=== PATIENT | female | born 1990 | race Two or more races ===

== ENCOUNTER 2024-06-27 19:15 | Inpatient (IN) | payer OTHER, BC ==
[~2024-06-27] VITALS: Ht 157.5 cm; Wt 60.2 kg
--- NOTE | 2024-06-27 19:44 | ED.PDOC ---
History of Present Illness HPI Comments 33-year-old female with PMHx DM2 presents with a chief complaint of left cheek swelling. Patient states that she developed a lump to her left cheek that has swollen and states that she is now experiencing pain near her eye. Patient was given an antibiotic at urgent care but states that she has yet to start it. Patient is able to see clearly in both eyes. Chief Complaint: Abscess Time Seen by MD: 19:39 Reviewed Notes: Medications, Allergies Allergies: Coded Allergies: NO KNOWN ALLERGIES (Unverified , 06/27/24) Information Source: Patient Mode of Arrival: Ambulatory Severity: Moderate Timing: Hours Duration: Since onset Prehospital treatment: None Past Medical History PAST MEDICAL HISTORY: DM Surgical History: Denies all surgeries LINEN FOLDER History: Denies all LINEN FOLDER Hx Family History Family History: Reviewed,noncontributory to illness Social History Smoker: Non-Smoker Alcohol: Denies ETOH Use Drugs: Denies Drug Use Lives In: Home Constitutional: denies: chills, diaphoresis, fatigue, fever, malaise, sweats, weakness, others EENTM: denies: blurred vision, double vision, ear bleeding, ear discharge, ear drainage, ear pain, ear ringing, eye pain, eye redness, hearing loss, mouth pain, mouth swelling, nasal discharge, nose bleeding, nose congestion, nose pain, photophobia, tearing, throat pain, throat swelling, voice changes, others Respiratory: denies: cough, hemoptysis, orthopnea, SOB at rest, shortness of breath, SOB with excertion, stridor, wheezing, others Cardiovascular: denies: chest pain, dizzy spells, diaphoresis, Dyspnea on exertion, edema, irregular heart beat, left arm pain, lightheadedness, palpitations, PND, syncope, others Gastrointestinal: denies: abdomen distended, abdominal pain, blood streaked bowels, constipated, diarrhea, dysphagia, difficulty swallowing, hematemesis, me dereje, nausea, poor appetite, poor fluid intake, rectal bleeding, rectal pain, vomiting, others Genitourinary: denies: abnormal vagina bleeding, burning, dyspareunia, dysuria, flank pain, frequency, hematuria, incontinence, pain, , vagina discharge, urgency, others Musculoskeletal: denies: back pain, gout, joint pain, joint swelling, muscle pain, muscle stiffness, neck pain, others Integumetry: reports: lumps (LEFT CHEEK); denies: bruises, change in color, change in hair/nails, dryness, laceration, lesions, rash, wounds, others Allergic/Immunocompromised: denies: Difficulty Healing, Frequent Infections, Hives, Itching, others Hematologic/Lymphatic: denies: anemia, blood clots, easy bleeding, easy bruising, swollen glands, others Endocrine: denies: excessive hunger, excessive sweating, excessive thirst, excessive urination, flushing, intolerance to cold, intolerance to heat, unexplained weight gain, unexplained weight loss, others Psychiatric: denies: anxiety, bipolar disorder, depression, hopeless, panic disorder, schizophrenia, sleepless, suicidal, others All Other Systems: Reviewed and Negative Physical Exam General Appearance: No Apparent Distress, Normal HEENT: Normal ENT Inspection, Pharynx Normal, TMs Normal Neck: Full Range of Motion, Non-Tender, Normal, Normal Inspection Respiratory: Chest Non-Tender, Lungs Clear, No Accessory Muscle Use, No Respiratory Distress, Normal Breath Sounds Cardiovascular: No Edema, No JVD, No Murmur, No Gallop, Normal Peripheral Pulses, Regular Rate/Rhythm Breast Exam: Deferred Gastrointestinal: No Organomegaly, Non Tender, No Pulsatile Mass, Normal Bowel Sounds, Soft Genitalia: Deferred Pelvic: Deferred Rectal: Deferred Extremities: No calf tenderness, Normal capillary refill, Normal inspection, Normal range of motion, Non-tender, No pedal edema Musculoskeletal : Apperance: Normal Neurologic: Alert, 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 Was a procedure done?: No Differential Dx Considerations may include: Cellulitis, abscess, viral syndrome X-Ray, Labs, Meds, VS Vital Signs Date Time Temp Pulse Resp B/P (MAP) Pulse Ox O2 Delivery O2 Flow Rate FiO2 06/27/24 23:36 84 20 96 Room Air* 0 21 06/27/24 22:10 98.7 99 20 147/92 (110) 99 98.7 06/27/24 19:31 96.8 103 18 137/84 (101) 97 96.8 Lab Test 06/27/24 22:41 06/27/24 19:52 Range/Units POC Glucose 417 *H 70-106 mg/dl White Blood Count 8.7 4.4-10.8 10^3/uL Red Blood Count 5.09 4.0-5.20 10^6/uL Hemoglobin 15.4 12.2-16.2 g/dL Hematocrit 44.1 36.0-46.0 % Mean Corpuscular Volume 86.7 80.0-100.0 fL Mean Corpuscular Hemoglobin 30.2 28.0-32.0 pg Mean Corpuscular Hemoglobin Concent 34.8 32.0-36.0 g/dL Red Cell Distribution Width 13.1 11.8-14.3 % Platelet Count 274 140-450 10^3/uL Mean Platelet Volume 8.2 6.9-10.8 fL Neutrophils (%) (Auto) 66.1 37.0-80.0 % Lymphocytes (%) (Auto) 24.1 10.0-50.0 % Monocytes (%) (Auto) 8.1 0.0-12.0 % Eosinophils (%) (Auto) 1.0 0.0-7.0 % Basophils (%) (Auto) 0.7 0.0-2.0 % Neutrophils # (Auto) 5.8 1.6-8.6 10 ^3/uL Lymphocytes # (Auto) 2.1 0.4-5.4 10 ^3/uL Monocytes # (Auto) 0.7 0-1.3 10 ^3/uL Eosinophils # (Auto) 0.1 0-0.8 10 ^3/uL Basophils # (Auto) 0.1 0-0.2 10 ^3/uL Nucleated Red Blood Cells 0.1 % Sodium Level 132 L 136-145 mmol/L Potassium Level 3.5 3.5-5.1 mmol/L Chloride Level 99 98-107 mmol/L Carbon Dioxide Level 23 20-31 mmol/L Anion Gap 10 5-15 Blood Urea Nitrogen 13 9-23 mg/dL Creatinine 0.75 0.550-1.02 mg/dL Glomerular Filtration Rate Calc 108 >90 mL/min BUN/Creatinine Ratio 17.3 10.0-20.0 Serum Glucose 479 *H 74-106 mg/dL Lactic Acid Level 0.9 0.4-2.0 mmol/L Calcium Level 9.3 8.7-10.4 mg/dL Current Medications Medications (Trade) Dose Ordered Sig/Lev Route Start Time Stop Time Status Last Admin Sodium Chloride 1,000 ml @ 1,000 mls/hr Q1H ONCE IV 06/27/24 19:45 06/27/24 20:44 DC 06/28/24 00:09 Cefepime HCl 50 ml @ 12.5 mls/hr ONCE ONCE IV 06/27/24 19:45 06/27/24 23:44 DC 06/27/24 22:49 Vancomycin HCl 200 ml @ 200 mls/hr ONCE ONCE IV 06/27/24 19:45 06/27/24 20:44 DC 06/27/24 23:29 Sodium Chloride 1,000 ml @ 1,000 mls/hr Q1H ONCE IV 06/27/24 21:15 06/27/24 22:14 DC 06/27/24 22:49 Insulin Human Regular (InsuLIN R) 5 units ONCE ONCE IV 06/27/24 21:15 06/27/24 21:26 DC 06/27/24 22:45 Ketorolac Tromethamine (Toradol Injection) 15 mg ONCE ONCE IV 06/27/24 22:45 06/27/24 22:50 DC 06/27/24 22:53 Acetaminophen (Tylenol Tablet) 650 mg ONCE ONCE PO 06/27/24 22:45 06/27/24 22:50 DC 06/27/24 22:53 Time of 1ST Reevaluation: 20:09 Reevaluation 1ST: Unchanged Patient Education/Counseling: Diagnosis, Treatment Family Education/Counseling: No Family Present Departure 1 Departure Time of Disposition: 05:17 (Patient with cellulitis for an abscess over the left cheek. Patient also with a uncontrolled diabetes. We will admit patient for further workup) Impression: Primary Impression: Cellulitis of face Additional Impressions: Uncontrolled diabetes mellitus Qualified Codes: E11.65 - Type 2 diabetes mellitus with hyperglycemia Abscess Disposition: 09 ADMITTED INPATIENT Admit to: Med Surg Condition: Serious Critical Care Note Critical Care Time?: No Stability Stability form required: No Heart Score Heart Score: Heart Score Response (Comments) Value History N/A 0 EKG N/A 0 Age N/A 0 Risk Factors N/A 0 Troponin N/A 0 Total 0 I personally scribed for MISTY BURLESON MD ([email or web address]) on 06/27/24 at 19:44. Electronically submitted by Wild Haq ([email or web address]). MISTY BURLESON MD Jun 27, 2024 19:44
[2024-06-27 20:14] LABS: Basophils # (auto) 0.1 10 ^3/uL (0-0.2); Basophils % (auto) 0.7 % (0.0-2.0); Eosinophils # (auto) 0.1 10 ^3/uL (0-0.8); Hematocrit 44.1 % (36.0-46.0); Hemoglobin 15.4 g/dL (12.2-16.2); Lymphocytes # (auto) 2.1 10 ^3/uL (0.4-5.4); Lymphocytes % (auto) 24.1 % (10.0-50.0); Mean Corpuscular Hemoglobin 30.2 pg (28.0-32.0); Mean Corpuscular Hgb Conc. 34.8 g/dL (32.0-36.0); Mean Corpuscular Volume 86.7 fL (80.0-100.0); Monocytes # (auto) 0.7 10 ^3/uL (0-1.3); Monocytes % (auto) 8.1 % (0.0-12.0); Neutrophils # (auto) 5.8 10 ^3/uL (1.6-8.6); Neutrophils % (auto) 66.1 % (37.0-80.0); Nucleated Red Blood Cells % 0.1 %; Platelet Count (auto) 274 10^3/uL (140-450); Red Blood Cells 5.09 10^6/uL (4.0-5.20); Red Cell Distribution Width 13.1 % (11.8-14.3); White Blood Cell 8.7 10^3/uL (4.4-10.8)
[2024-06-27 20:17] LABS: Chloride 99 mmol/L (98-107); Potassium 3.5 mmol/L (3.5-5.1)
[2024-06-27 20:18] LABS: Anion Gap 10 (5-15); Carbon Dioxide 23 mmol/L (20-31)
[2024-06-27 20:19] LABS: Calcium 9.3 mg/dL (8.7-10.4)
[2024-06-27 20:23] LABS: BUN/Creatinine Ratio 17.3 (10.0-20.0); Blood Urea Nitrogen 13 mg/dL (9-23)
[2024-06-27 20:26] LABS: Glucose 479 mg/dL (74-106); Sodium 132 mmol/L (136-145)
[2024-06-27] MEDS: InsuLIN REG 1unit/0.01ml Soln (100units/ml) IV ONE (22:45)
[2024-06-27] MEDS: SODIUM CHLORIDE 0.9% 1,000 ML IV ONE (22:49)
[2024-06-27] MEDS: CEFEPIME 2GM/50ML NS 50 ML IV ONE (22:49)
[2024-06-27] MEDS: KETOROLAC TROMETH 30 MG/ML 1ML VIAL IV ONE (22:53)
[2024-06-27] MEDS: ACETAMINOPHEN 325 MG TAB PO ONE (22:53)
[2024-06-27] MEDS: VANCOMYCIN 1GM/200ML PM 200 ML IV ONE (23:29)
[2024-06-27 23:36] VITALS: PULSE 84; RESP 20; O2SAT 96
[2024-06-28] MEDS ORDERED: TEMAZEPAM 15 MG CAP PO PRN
[2024-06-28] MEDS ORDERED: ACETAMINOPHEN 325 MG TAB PO PRN
[2024-06-28] MEDS ORDERED: ONDANSETRON HCL 4 MG/2 ML VIAL IV PRN
[2024-06-28] MEDS ORDERED: VANCOMYCIN PER PHARMACY 0 MG IV SCH
[2024-06-28] MEDS ORDERED: DEXTROSE (50%) 50ML SYRG IV PRN
[2024-06-28] MEDS: SODIUM CHLORIDE 0.9% 1,000 ML IV ONE (00:09)
[2024-06-28] MEDS: InsuLIN REG 1unit/0.01ml Soln (100units/ml) SC SCH (00:16)
[2024-06-28] MEDS: ACCU-CHEK COMFORT CURVE STRIP VI SCH (00:19)
[2024-06-28 00:36] LABS: Urine Bacteria None Seen /hpf (None Seen)
[2024-06-28 00:47] LABS: Urine Blood TRACE /uL (Negative); Urine Clarity Clear (Clear); Urine Color Light-Yellow (Yellow); Urine Protein, UAD Negative (Negative); Urine Specific Gravity 1.041 (1.001-1.035); Urine Squamous Epithelial Cell FEW /hpf (<5); Urine Urobilinogen Normal (Negative); Urine WBC 6 /HPF (0-5); Urine pH 5.5 (5.0-9.0)
[2024-06-28 02:11] VITALS: BP 138/72; PULSE 86; RESP 18; TEMP 98.2; O2SAT 96
--- NOTE | 2024-06-28 03:10 | DVHHP2 ---
History of Present Illness Reason for Visit: Facial swelling History of Present Illness 33-year-old female presents for evaluation of left cheek swelling. Patient reports developing a small lump two days ago on her left cheek. She states that today in became progressively more swollen and tender. Denies trauma to the area or or insect bite. Reports intermittent chills. Past Medical History Diabetes mellitus Past Surgical History Denies Family History Noncontributory Smoke: No ALCOHOL: none Drugs: None Lives: with Family Review of Systems Review of Systems Review of systems are currently negative otherwise addressed in HPI. Allergies: Coded Allergies: NO KNOWN ALLERGIES (Unverified , 06/27/24) Medications Current Medications Medications Dose Ordered Sig/Lev Route Start Time Stop Time Status Last Admin Dose Admin Ceftriaxone Sodium 50 ml @ 100 mls/hr DAILY@09 IV 06/28/24 09:00 Vancomycin HCl 0 ml @ 0 mls/hr UD IV 06/28/24 00:00 UNV Diagnostic Test (Pha) 1 strip IQ4HR 06/28/24 00:00 06/28/24 00:19 1 STRIP Insulin Human Regular IQ4HR SC 06/28/24 00:00 06/28/24 00:16 8 UNITS Dextrose 50 ml UD PRN IV 06/28/24 00:00 Acetaminophen/ Hydrocodone Bitart 1 tab Q4HP PRN PO 06/28/24 00:00 Temazepam 15 mg QHSP PRN PO 06/28/24 00:00 Ondansetron HCl 4 mg Q4HP PRN IV 06/28/24 00:00 Acetaminophen 650 mg Q6HP PRN PO 06/28/24 00:00 Exam Vital Signs Vital Signs Date Time Temp Pulse Resp B/P (MAP) Pulse Ox O2 Delivery O2 Flow Rate FiO2 06/27/24 23:36 84 20 96 Room Air* 0 21 06/27/24 22:10 98.7 147/92 (110) 98.7 Exam Gen: 33-year-old female in mild distress Skin: Warm, dry, normal color and texture, no rash. HEENT: Normocephalic atraumatic, mucous membranes moist and pink, left facial swelling Neck: Cervical and supraclavicular nodes normal without enlargement, trachea is midline, thyroid gland is normal without masses. Pulmonary: Clear to auscultation and percussion bilaterally. Cardiac: Regular rate and rhythm. No murmur Abdomen: Soft, nontender, nondistended, bowel sounds present all 4 quadrants, no guarding, no rigidity, no organomegaly. Extremities: No cyanosis, clubbing, no edema Neuro: Cranial nerves II through XII grossly intact, normal affect and speech, no focal motor deficits. Labs/Xrays Labs Test 06/28/24 00:14 06/28/24 00:11 06/27/24 19:52 Range/Units POC Glucose 346 H 70-106 mg/dl Urine Color Light-yellow Yellow Urine Clarity Clear Clear Urine pH 5.5 5.0-9.0 Urine Specific [place] 1.041 H 1.001-1.035 Urine Protein Negative Negative Urine Ketones 2+ H Negative Urine Blood Trace H Negative /uL Urine Nitrite 1+ H Negative Urine Bilirubin Negative Negative Urine Urobilinogen Normal Negative mg/dL Urine Leukocyte Esterase Negative Negative /uL Urine RBC 2 0 - 4 /hpf Urine Microscopic WBC 6 H 0-5 /HPF Urine Squamous Epithelial Cells Few <5 /hpf Urine Bacteria None seen None Seen /hpf Urine Glucose 4+ H Normal mg/dL White Blood Count 8.7 4.4-10.8 10^3/uL Red Blood Count 5.09 4.0-5.20 10^6/uL Hemoglobin 15.4 12.2-16.2 g/dL Hematocrit 44.1 36.0-46.0 % Mean Corpuscular Volume 86.7 80.0-100.0 fL Mean Corpuscular Hemoglobin 30.2 28.0-32.0 pg Mean Corpuscular Hemoglobin Concent 34.8 32.0-36.0 g/dL Red Cell Distribution Width 13.1 11.8-14.3 % Platelet Count 274 140-450 10^3/uL Mean Platelet Volume 8.2 6.9-10.8 fL Neutrophils (%) (Auto) 66.1 37.0-80.0 % Lymphocytes (%) (Auto) 24.1 10.0-50.0 % Monocytes (%) (Auto) 8.1 0.0-12.0 % Eosinophils (%) (Auto) 1.0 0.0-7.0 % Basophils (%) (Auto) 0.7 0.0-2.0 % Neutrophils # (Auto) 5.8 1.6-8.6 10 ^3/uL Lymphocytes # (Auto) 2.1 0.4-5.4 10 ^3/uL Monocytes # (Auto) 0.7 0-1.3 10 ^3/uL Eosinophils # (Auto) 0.1 0-0.8 10 ^3/uL Basophils # (Auto) 0.1 0-0.2 10 ^3/uL Nucleated Red Blood Cells 0.1 % Sodium Level 132 L 136-145 mmol/L Potassium Level 3.5 3.5-5.1 mmol/L Chloride Level 99 98-107 mmol/L Carbon Dioxide Level 23 20-31 mmol/L Anion Gap 10 5-15 Blood Urea Nitrogen 13 9-23 mg/dL Creatinine 0.75 0.550-1.02 mg/dL Glomerular Filtration Rate Calc 108 >90 mL/min BUN/Creatinine Ratio 17.3 10.0-20.0 Serum Glucose 479 *H 74-106 mg/dL Lactic Acid Level 0.9 0.4-2.0 mmol/L Calcium Level 9.3 8.7-10.4 mg/dL Assessment/Plan Assessment/Plan Assessment Left facial swelling Uncontrolled diabetes mellitus Plan Admit the patient to [facility] to the hospitalist Rocephin/vancomycin Q.4 hour Accu-Cheks with moderate coverage Continue treatment per orders. Plan discussed with: Patient My Orders Orders - [facility] Procedure Category Date Status Time Ceftriaxone 1gm/50ml PHA 06/28/24 In Process D5w (Rocephin) 09:00 Vancomycin Per PHA 06/28/24 Pending Pharmacy 00:00 Basic Metabolic Panel LAB 06/28/24 Logged 04:00 Glucose Blood PHA 06/28/24 In Process (Accu-Chek Comfort 00:00 Insulin R (Human) PHA 06/28/24 In Process (Insulin R) 00:00 Dextrose 50% Syringe PHA 06/28/24 In Process 00:00 Admit ADMIT 06/27/24 Transmitted 23:48 Hydrocodone-Acet PHA 06/28/24 In Process 5/325mg Tab ([place] 00:00 Temazepam (Restoril) PHA 06/28/24 In Process 00:00 Ondansetron Hcl PHA 06/28/24 In Process (Zofran) 00:00 Complete Blood Count LAB 06/28/24 Logged 04:00 Condition: Stable ROSELINE 06/27/24 In Process 23:48 Acetaminophen Tablet PHA 06/28/24 In Process (Tylenol Tablet) 00:00 Bedrest With Bathroom ROSELINE 06/27/24 In Process Privileg 23:48 Date of Service: Jun 27, 2024 Billing Provider: LAMBERTO CALDERÓN Common Visit Codes: [id number] INP/OBS CARE (MOD) LAMBERTO CALDERÓN Jun 28, 2024 03:10
[2024-06-28 05:02] LABS: Basophils # (auto) 0 10 ^3/uL (0-0.2); Basophils % (auto) 0.4 % (0.0-2.0); Eosinophils # (auto) 0.1 10 ^3/uL (0-0.8); Eosinophils % (auto) 1.1 % (0.0-7.0); Hemoglobin 12.4 g/dL (12.2-16.2); Lymphocytes # (auto) 2.4 10 ^3/uL (0.4-5.4); Lymphocytes % (auto) 30.8 % (10.0-50.0); Mean Corpuscular Hemoglobin 30.2 pg (28.0-32.0); Mean Corpuscular Hgb Conc. 34.5 g/dL (32.0-36.0); Mean Corpuscular Volume 87.6 fL (80.0-100.0); Monocytes # (auto) 0.6 10 ^3/uL (0-1.3); Monocytes % (auto) 8.1 % (0.0-12.0); Neutrophils # (auto) 4.7 10 ^3/uL (1.6-8.6); Neutrophils % (auto) 59.6 % (37.0-80.0); Nucleated Red Blood Cells % 0.1 %; Platelet Count (auto) 225 10^3/uL (140-450); Red Blood Cells 4.11 10^6/uL (4.0-5.20); Red Cell Distribution Width 12.7 % (11.8-14.3); White Blood Cell 7.9 10^3/uL (4.4-10.8)
[2024-06-28 05:17] LABS: Sodium 139 mmol/L (136-145)
[2024-06-28 05:18] LABS: Anion Gap 9 (5-15); Carbon Dioxide 22 mmol/L (20-31)
[2024-06-28 05:23] LABS: BUN/Creatinine Ratio 36.8 (10.0-20.0); Blood Urea Nitrogen 14 mg/dL (9-23)
[2024-06-28 05:24] LABS: Chloride 108 mmol/L (98-107); Glucose 189 mg/dL (74-106); Potassium 3.3 mmol/L (3.5-5.1)
[2024-06-28 05:25] LABS: Calcium 8.5 mg/dL (8.7-10.4)
[2024-06-28] MEDS: cefTRIAXone 1GM/50ML D5W 50 ML IV SCH (08:55)
[2024-06-28 09:14] VITALS: BP 130/80; PULSE 88; RESP 16; TEMP 98; O2SAT 99
[2024-06-28] MEDS: HYDROcodone-ACET 5/325MG TAB PO PRN (10:25)
--- NOTE | 2024-06-28 11:54 | DVHPN2 ---
Subjective The patient is seen and examined at bedside. Still complain of facial pain. No fever or chill. Reviewed: Care Plan, H&P, Labs, Medications, Previous Orders Changes from previous H/P or p: No Changes Objective Vitals Vital Signs Date Time Temp Pulse Resp B/P (MAP) Pulse Ox O2 Delivery O2 Flow Rate FiO2 06/28/24 09:14 98.0 88 16 130/80 (97) 99 98.0 06/28/24 02:11 Room Air* 0 21 Intake/Output Intake and Output 06/28/24 07:00 Intake Total 2370 ml Balance 2370 ml Intake Oral 120 ml IV Total 2250 ml # Voids 1 General Appearance: Alert, Oriented X3, Cooperative, No acute distress HEENT: EOMI, Mucous membr. moist/pink, Other (Cellulitis of face) Medications Current Medications Medications Dose Ordered Sig/Lev Route Start Time Stop Time Status Last Admin Dose Admin Ceftriaxone Sodium 50 ml @ 100 mls/hr DAILY@09 IV 06/28/24 09:00 06/28/24 08:55 100 MLS/HR Vancomycin HCl 0 ml @ 0 mls/hr UD IV 06/28/24 00:00 Diagnostic Test (Pha) 1 strip IQ4HR 06/28/24 00:00 06/28/24 11:20 1 STRIP Insulin Human Regular IQ4HR SC 06/28/24 00:00 06/28/24 11:29 3 UNITS Dextrose 50 ml UD PRN IV 06/28/24 00:00 Acetaminophen/ Hydrocodone Bitart 1 tab Q4HP PRN PO 06/28/24 00:00 06/28/24 10:25 1 TAB Temazepam 15 mg QHSP PRN PO 06/28/24 00:00 Ondansetron HCl 4 mg Q4HP PRN IV 06/28/24 00:00 Acetaminophen 650 mg Q6HP PRN PO 06/28/24 00:00 Vancomycin HCl 200 ml @ 160 mls/hr Q8H IV 06/28/24 13:00 Laboratory Results Laboratory Tests 06/28/24 04:30 Chemistry Test 06/27/24 19:52 06/28/24 04:30 Calcium Level 9.3 mg/dL (8.7-10.4) 8.5 mg/dL (8.7-10.4) L Urinalysis Test 06/28/24 00:11 Urine Color Light-yellow (Yellow) Urine Clarity Clear (Clear) Urine pH 5.5 (5.0-9.0) Urine Specific [place] 1.041 (1.001-1.035) Urine Protein Negative (Negative) Urine Ketones 2+ (Negative) H Urine Blood Trace /uL (Negative) H Urine Nitrite 1+ (Negative) H Urine Bilirubin Negative (Negative) Urine Urobilinogen Normal mg/dL (Negative) Urine Leukocyte Esterase Negative /uL (Negative) Urine RBC 2 /hpf (0 - 4) Urine Microscopic WBC 6 /HPF (0-5) H Urine Squamous Epithelial Cells Few /hpf (<5) Urine Bacteria None seen /hpf (None Seen) Urine Glucose 4+ mg/dL (Normal) H Assessment/Plan Assessment/Plan Left facial cellulitis Uncontrolled diabetes mellitus Continuing current management. Continuing with IV antibiotic Rocephin. The patient had an allergic reaction to vancomycin when infusion per nursing staff. I am going to stop the vancomycin. I am going to give the patient Benadryl 25 mg IV q.6 hours PRN for itching allergic reaction. Continuing with sliding scale insulin. Continuing with pain control. This medical document was created using an electronic medical record system with [employer] direct computerized dictation system. Although this document has been carefully reviewed, there may still be some phonetic and typographical errors. These areas are purely typographical due to imperfections of the software programs, and do not reflect any compromise in the patient's medical care. Plan discussed with: Patient Date of Service: Jun 28, 2024 Billing Provider: JOSE M BREEN MD Common Visit Codes: [id number] INP/OBS CARE(HIGH) JOSE M BREEN MD Jun 28, 2024 11:54
[2024-06-28 12:00] VITALS: BP 132/83; PULSE 132; RESP 83; TEMP 98.3; O2SAT 98
[2024-06-28] MEDS: VANCOMYCIN 1GM/200ML PM 200 ML IV SCH (13:22)
[2024-06-28] MEDS ORDERED: diphenhdrAMINE HCL 50 MG/1 ML VL IV PRN (14:30)
[2024-06-28] MEDS: diphenhdrAMINE HCL 50 MG/1 ML VL IV PRN (14:31)
[2024-06-28 21:02] VITALS: BP 139/98; PULSE 95; RESP 16; TEMP 97.8; O2SAT 98
[2024-06-29 01:12] VITALS: BP 130/85; PULSE 78; RESP 16; TEMP 97.9; O2SAT 98
[2024-06-29 05:18] VITALS: PULSE 82; RESP 14; O2SAT 98
[2024-06-29 06:15] LABS: Basophils # (auto) 0 10 ^3/uL (0-0.2); Basophils % (auto) 0.4 % (0.0-2.0); Eosinophils # (auto) 0.1 10 ^3/uL (0-0.8); Eosinophils % (auto) 1.8 % (0.0-7.0); Hematocrit 38.8 % (36.0-46.0); Hemoglobin 13.4 g/dL (12.2-16.2); Lymphocytes # (auto) 2.4 10 ^3/uL (0.4-5.4); Lymphocytes % (auto) 39.1 % (10.0-50.0); Mean Corpuscular Hemoglobin 29.9 pg (28.0-32.0); Mean Corpuscular Hgb Conc. 34.6 g/dL (32.0-36.0); Mean Corpuscular Volume 86.4 fL (80.0-100.0); Monocytes # (auto) 0.6 10 ^3/uL (0-1.3); Monocytes % (auto) 9.8 % (0.0-12.0); Neutrophils # (auto) 3.1 10 ^3/uL (1.6-8.6); Neutrophils % (auto) 48.9 % (37.0-80.0); Nucleated Red Blood Cells % 0.2 %; Platelet Count (auto) 258 10^3/uL (140-450); Red Blood Cells 4.49 10^6/uL (4.0-5.20); White Blood Cell 6.2 10^3/uL (4.4-10.8)
[2024-06-29] MEDS: diphenhdrAMINE HCL 50 MG/1 ML VL ONE (08:31)
[2024-06-29 08:45] VITALS: BP 139/84; PULSE 86; RESP 18; TEMP 98.1; O2SAT 98
--- NOTE | 2024-06-29 11:12 | DVHPN2 ---
Subjective The patient is seen and examined at bedside. Still complain of facial pain. No fever or chill. Reviewed: Care Plan, H&P, Labs, Medications, Previous Orders Changes from previous H/P or p: No Changes Objective Vitals Vital Signs Date Time Temp Pulse Resp B/P (MAP) Pulse Ox O2 Delivery O2 Flow Rate FiO2 06/29/24 08:45 98.1 86 18 139/84 (102) 98 98.1 06/28/24 02:11 Room Air* 0 21 Intake/Output Intake and Output 06/29/24 07:00 Intake Total 1500 ml Balance 1500 ml Intake Oral 1500 ml # Voids 8 General Appearance: Alert, Oriented X3, Cooperative, No acute distress HEENT: EOMI, Mucous membr. moist/pink, Other (Cellulitis of face) Medications Current Medications Medications Dose Ordered Sig/Lev Route Start Time Stop Time Status Last Admin Dose Admin Ceftriaxone Sodium 50 ml @ 100 mls/hr DAILY@09 IV 06/28/24 09:00 06/29/24 10:09 100 MLS/HR Diagnostic Test (Pha) 1 strip IQ4HR 06/28/24 00:00 06/29/24 10:11 1 STRIP Insulin Human Regular IQ4HR SC 06/28/24 00:00 06/29/24 10:23 6 UNITS Dextrose 50 ml UD PRN IV 06/28/24 00:00 Acetaminophen/ Hydrocodone Bitart 1 tab Q4HP PRN PO 06/28/24 00:00 06/28/24 10:25 1 TAB Temazepam 15 mg QHSP PRN PO 06/28/24 00:00 Ondansetron HCl 4 mg Q4HP PRN IV 06/28/24 00:00 Acetaminophen 650 mg Q6HP PRN PO 06/28/24 00:00 Diphenhydramine HCl 50 mg Q6HP PRN IV 06/28/24 14:30 06/28/24 14:31 50 MG Laboratory Results Laboratory Tests 06/28/24 04:30 06/29/24 05:30 Urinalysis Test 06/28/24 00:11 Urine Color Light-yellow (Yellow) Urine Clarity Clear (Clear) Urine pH 5.5 (5.0-9.0) Urine Specific [place] 1.041 (1.001-1.035) Urine Protein Negative (Negative) Urine Ketones 2+ (Negative) H Urine Blood Trace /uL (Negative) H Urine Nitrite 1+ (Negative) H Urine Bilirubin Negative (Negative) Urine Urobilinogen Normal mg/dL (Negative) Urine Leukocyte Esterase Negative /uL (Negative) Urine RBC 2 /hpf (0 - 4) Urine Microscopic WBC 6 /HPF (0-5) H Urine Squamous Epithelial Cells Few /hpf (<5) Urine Bacteria None seen /hpf (None Seen) Urine Glucose 4+ mg/dL (Normal) H Microbiology Microbiology Date/Time Source Procedure Growth Status 06/27/24 19:52 Blood Blood Culture - Preliminary NO GROWTH AFTER 24 HOURS OF INCUBATION. Resulted Assessment/Plan Assessment/Plan Left facial cellulitis Uncontrolled diabetes mellitus Continuing current management. Continuing with IV antibiotic Rocephin. The patient had an allergic reaction to vancomycin when infusion per nursing staff. Vancomycin was stopped. No further allergic reaction. Continuing Benadryl 25 mg IV q.6 hours PRN for itching allergic reaction. Continuing with sliding scale insulin. Continuing with pain control. This medical document was created using an electronic medical record system with [employer] direct computerized dictation system. Although this document has been carefully reviewed, there may still be some phonetic and typographical errors. These areas are purely typographical due to imperfections of the software programs, and do not reflect any compromise in the patient's medical care. Plan discussed with: Patient My Orders Orders - JOSE M BREEN MD Procedure Category Date Status Time Diphenhdramine PHA 06/28/24 In Process Injection (Benadryl 14:30 Date of Service: Jun 29, 2024 Billing Provider: JOSE M BREEN MD Common Visit Codes: [id number] INP/OBS CARE(HIGH) JOSE M BREEN MD Jun 29, 2024 11:12
[2024-06-29 12:50] VITALS: BP 136/83; PULSE 81; RESP 18; TEMP 98; O2SAT 100
[2024-06-29 17:00] VITALS: BP 144/68; PULSE 84; RESP 18; TEMP 97.9; O2SAT 99
[2024-06-29 21:00] VITALS: BP 122/94; PULSE 85; RESP 18; TEMP 98.1; O2SAT 98
[2024-06-29 21:20] LABS: Urine Bacteria FEW /hpf (None Seen); Urine Blood Negative /uL (Negative); Urine Clarity Turbid (Clear); Urine Color Colorless (Yellow); Urine Protein, UAD Negative (Negative); Urine Specific Gravity 1.007 (1.001-1.035); Urine Squamous Epithelial Cell MOD /hpf (<5); Urine Urobilinogen Normal (Negative); Urine WBC 4 /HPF (0-5)
[2024-06-30 01:00] VITALS: BP 116/76; PULSE 83; RESP 18; TEMP 97.5; O2SAT 95
[2024-06-30 05:00] VITALS: BP 103/72; PULSE 83; RESP 18; TEMP 97.8; O2SAT 100
[2024-06-30 08:00] VITALS: PULSE 82; RESP 17; O2SAT 98
[2024-06-30 08:50] VITALS: BP 124/78; PULSE 82; RESP 17; TEMP 97.8; O2SAT 98
--- NOTE | 2024-06-30 11:03 | DVHDS2 ---
Discharge Summary Date of Admission Jun 27, 2024 at 23:48 Date of Discharge: Jun 30, 2024 Admitting Diagnosis Left facial cellulitis Uncontrolled diabetes mellitus Labs/Diagnostic Data: Laboratory Results Test 06/30/24 03:53 06/29/24 21:01 06/29/24 12:00 06/29/24 05:30 POC Glucose 132 mg/dl (70-106) Urine Color Colorless (Yellow) Urine Clarity Turbid (Clear) Urine pH 7.0 (5.0-9.0) Urine Specific [place] 1.007 (1.001-1.035) Urine Protein Negative (Negative) Urine Ketones Negative (Negative) Urine Blood Negative /uL (Negative) Urine Nitrite Negative (Negative) Urine Bilirubin Negative (Negative) Urine Urobilinogen Normal mg/dL (Negative) Urine Leukocyte Esterase Negative /uL (Negative) Urine RBC 1 /hpf (0 - 4) Urine Microscopic WBC 4 /HPF (0-5) Urine Squamous Epithelial Cells Mod /hpf (<5) Urine Bacteria Few /hpf (None Seen) Urine Glucose Normal mg/dL (Normal) Vancomycin Level Trough < 3.0 ug/mL (5-10) White Blood Count 6.2 10^3/uL (4.4-10.8) Red Blood Count 4.49 10^6/uL (4.0-5.20) Hemoglobin 13.4 g/dL (12.2-16.2) Hematocrit 38.8 % (36.0-46.0) Mean Corpuscular Volume 86.4 fL (80.0-100.0) Mean Corpuscular Hemoglobin 29.9 pg (28.0-32.0) Mean Corpuscular Hemoglobin Concent 34.6 g/dL (32.0-36.0) Red Cell Distribution Width 13.0 % (11.8-14.3) Platelet Count 258 10^3/uL (140-450) Mean Platelet Volume 7.9 fL (6.9-10.8) Neutrophils (%) (Auto) 48.9 % (37.0-80.0) Lymphocytes (%) (Auto) 39.1 % (10.0-50.0) Monocytes (%) (Auto) 9.8 % (0.0-12.0) Eosinophils (%) (Auto) 1.8 % (0.0-7.0) Basophils (%) (Auto) 0.4 % (0.0-2.0) Neutrophils # (Auto) 3.1 10 ^3/uL (1.6-8.6) Lymphocytes # (Auto) 2.4 10 ^3/uL (0.4-5.4) Monocytes # (Auto) 0.6 10 ^3/uL (0-1.3) Eosinophils # (Auto) 0.1 10 ^3/uL (0-0.8) Basophils # (Auto) 0 10 ^3/uL (0-0.2) Nucleated Red Blood Cells 0.2 % Creatinine 0.45 mg/dL (0.550-1.02) Glomerular Filtration Rate Calc 131 mL/min (>90) Test 06/28/24 04:30 06/27/24 19:52 Sodium Level 139 mmol/L (136-145) Potassium Level 3.3 mmol/L (3.5-5.1) Chloride Level 108 mmol/L (98-107) Carbon Dioxide Level 22 mmol/L (20-31) Anion Gap 9 (5-15) Blood Urea Nitrogen 14 mg/dL (9-23) BUN/Creatinine Ratio 36.8 (10.0-20.0) Serum Glucose 189 mg/dL (74-106) Calcium Level 8.5 mg/dL (8.7-10.4) Lactic Acid Level 0.9 mmol/L (0.4-2.0) Other Laboratory Tests 06/29/24 05:30 06/28/24 04:30 Brief Hx & Hospital Course: This is a 33 years old female came into emergency department because of left cheek swelling. Patient developed a small lumps today on her left cheek and apparently she woke up on the day of admission with the redness spread the whole face to her eye. She denied any trauma to the area or insect bite. She does have intermittent chills in the time the redness come out. The patient was admitted for facial cellulitis. The patient was put on IV antibiotic with Rocephin 1 g IV q.day and vancomycin pharmacy to dose. Patient however had allergic reaction during vancomycin infusions. So vancomycin was stopped. She continuing with Rocephin. Her cellulitis improved. She denied any blurred vision or vision loss. The redness is almost gone today. So I am going to discharge her home. Advised her to follow up with primary care physician 1-2 weeks. Activity as tolerated. Diet per home diet. Patient also was found to have diabetes but she did not take any medication. She said she stopped taking medication for a couple years. Advised her to compliance with diabetes medication because diabetes can cause a lot of complication. Patient verbally understand. I will start her on metformin 500 mg twice per day. Advised her to follow up with primary care physician to continuing diabetes care. Physical exam: HEENT: Normocephalic atraumatic pupils equal react to light and accommodation. Extraocular muscles intact, conjunctiva pink, oropharynx moist, no thrush, no exudate. Lymphatic: No lymphadenopathy Cardiovascular exam: S1, S2 was heard. No murmurs, rubs, gallops Lung: Clear on auscultation bilaterally, no wheeze, rale, rhonchi. GI: Abdominal soft, nondistended, nontenderness, positive bowel sounds. Extremity: No crepitus, cyanosis, edema. Pedal pulses present bilateral. Full range of motion. Skin: Normal turgor, no rash. Psych: Alert, oriented x3. Neurology: No focal deficits, cranial nerve II to XII grossly intact. This medical document was created using an electronic medical record system with [employer] direct computerized dictation system. Although this document has been carefully reviewed, there may still be some phonetic and typographical errors. These areas are purely typographical due to imperfections of the software programs, and do not reflect any compromise in the patient's medical care. Condition at Discharge: Stable Final Diagnosis/Problems List Left facial cellulitis Uncontrolled diabetes mellitus Discharge Disposition: Home Discharge Statement: "Patient was advised to return to the ER or call 911 if any headaches, dizziness, shortness of breath, chest pain, abdominal pain, bleeding, fevers, or worsening of medical condition. Patient was counseled about treatment plan, medications, possible side effects, patientverbalized understanding. All questions were answered to the best of my ability. This discharge took greater then 30 minutes in planning, reviewing documentation, counseling the patient, and discussing with other team members." ASSESSMENT ASSESSMENT Assessment Date of Service: Jun 30, 2024 Billing Provider: JOSE M BREEN MD Common Visit Codes: 35547-AIQ/OBS DISCH DAY >30min JOSE M BREEN MD Jun 30, 2024 11:03
[2024-06-30] MEDS ORDERED: CEPH250C PO (11:08)
[2024-06-30] MEDS ORDERED: METF-370 PO (11:08)
[2024-06-30 12:50] VITALS: BP 119/81; PULSE 84; RESP 18; TEMP 98.2; O2SAT 100
[2024-06-30 13:10] VITALS: BP 119/81; PULSE 84; RESP 18; TEMP 98.2; O2SAT 100
== END 2024-06-30 14:24 | disposition home or self-care (01) | DRG 603 ==
LOC: ER 19:15 → OVERFLOW 23:48 → EAST 06-28 21:00
PROVIDERS: ADMIT Internal Medicine; ATTEND Internal Medicine
DX: L03.211 Cellulitis of face (principal); T36.8X5A Adverse effect of other systemic antibiotics, initial encounter; E11.9 Type 2 diabetes mellitus without complications; Z79.899 Other long term (current) drug therapy; Y92.89 Other specified places as the place of occurrence of the external cause
CPT/HCPCS: 36415; 80048; 80202; 81001; 82565; 82962; 83605; 85025; 87040; 96365; 96368; 96375; G0378; J0692; J1815; J1885; J2405